=== PATIENT | female | born 1965 | race Caucasian/White ===

== ENCOUNTER → 2016-09-26 21:51 | Emergency (ER) | payer MEDICAID ==
[2016-09-26 22:31] LABS: Hematocrit 38 % (35-47); Hemoglobin 13.1 g/dl (12.0-16.0); Mean Corpuscular HGB Conc 35 g/dl (31-36); Mean Corpuscular Hemoglobin 31 pg (27-31); Mean Corpuscular Volume 90 fL (80-97); Mean Platelet Volume 8 um3 (7.4-10.4); Red Blood Count 4.21 10^6/ul (4.0-5.4); Red Cell Distribution Width 12 % (10.5-15); White Blood Count 7.5 10^3/ul (3.5-10.8)
--- NOTE | 2016-09-26 22:35 | ED ---
Ortiz Carrillo Billy, scribed for Willis Redding MD on 09/26/16 at 2218 . Neurological HPI - HPI Summary HPI Summary: Patient is a 51 year-old female coming to [facility] for evaluation of neurological symptoms since last night. Per EMS, patient has lethargy, headache, right-sided weakness in the extremities, right-sided facial droop, and slurred speech. She has also had an underlying neurological deficit where she has had an "odd gait" for the last few months. - History of Current Complaint Chief Complaint: EDNeurologicalDeficit Stated Complaint: R SIDED WEAKNESS/CVA Time Seen by Provider: 09/26/16 21:59 Hx Obtained From: Patient, EMS Onset/Duration: Gradual Onset, Started days ago Timing: Constant Onset Severity: Moderate Current Severity: Moderate Neurological Deficit Location: Facial, RUE, RLE Character: Motor Weakness, Impaired Speech, Lethargy Aggravating: Unknown Alleviating: Unknown - Additional Pertinent History Primary Care Physician: DAVID - Allergy/Home Medications Allergies/Adverse Reactions: Allergies Allergy/AdvReac Type Severity Reaction Status Date / Time Penicillins [PCN] Allergy Severe Anaphylatic Verified 08/12/16 14:44 Shock PMH/Surg Hx/FS Hx/Imm Hx Endocrine/Hematology History: Denies: Hx Diabetes Cardiovascular History: Denies: Hx Congestive Heart Failure, Hx Hypertension, Hx Pacemaker/ICD Respiratory History: Reports: Hx Chronic Obstructive Pulmonary Disease (COPD) - says isnt bad and that she only uses a nebulizer very infrequently GI History: Reports: Hx Ulcer - says had gastric ulcer when a child, Other GI Disorders - cirrhosis with ascites History: Denies: Hx Renal Disease, Other Problems/Disorders Musculoskeletal History: Reports: Hx Back Problems, Hx Orthopedic Injury, Other Musculoskeletal History - shoulder problem. takes flexeril, plate in neck Denies: Hx Arthritis, Hx Bursitis, Hx Congenital Bone Abnormalities, Hx Fibromyalgia, Hx Gout Sensory History: Reports: Hx Contacts or Glasses Denies: Hx Cataracts, Hx Hearing Aid Opthamlomology History: Reports: Hx Contacts or Glasses Denies: Hx Cataracts Neurological History: Reports: Other Neuro Impairments/Disorders - head injury w /o loss of consciousness Denies: Hx Dementia Psychiatric History: Reports: Hx Anxiety, Hx Depression, Hx Community Mental Health Tx, Hx Suicide Attempt, Hx Substance Abuse Denies: Hx Eating Disorder, Hx Panic Disorder, Hx of Violent Episodes Against Others - Cancer History Cancer Type, Location and Year: Cervical Hx Chemotherapy: No Hx Radiation Therapy: No Hx Palliative Cancer Treatment: No - Surgical History Surgery Procedure, Year, and Place: cervical neck fusion with titanium rods 2010. 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, Hx of Known/Suspected MRSA - "About 10 years ago." Denies: Hx Clostridium Difficile, Hx Human Immunodeficiency Virus (HIV), Traveled Outside the [place] in Last 30 Days - Family History Known Family History: Positive: Other - EtOH abuse disorder - Social History Alcohol Use: Daily Alcohol Amount: alcoholic, drank last night Hx Substance Use: No Substance Use Type: Reports: None Substance Use Comment - Amount & Last Used: currently denies drug use Hx Tobacco Use: Yes Smoking Status (MU): Heavy Every Day Tobacco Smoker Type: Cigarettes Amount Used/How Often: 1 pack per day Length of Time of Smoking/Using Tobacco: years Have You Smoked in the Last Year: Yes Review of Systems Constitutional: Other - lethargy Neurological: Other - facial droop, slurred speech, "odd gait" Positive: Headache, Weakness All Other Systems Reviewed And Are Negative: Yes Physical Exam Triage Information Reviewed: Yes Vital Signs On Initial Exam: Initial Vital Signs Temp 97 F 09/26/16 22:17 Pulse 99 09/26/16 22:17 Resp 18 09/26/16 22:17 BP 97/71 09/26/16 22:17 Pulse Ox 97 09/26/16 22:17 Vital Signs Reviewed: Yes Appearance: Positive: No Pain Distress, Ill-Appearing, Thin Skin: Positive: Warm Head/Face: Positive: Normal Head/Face Inspection Eyes: Positive: INDER ENT: Positive: Hearing grossly normal Neck: Positive: Supple Respiratory/Lung Sounds: Positive: Clear to Auscultation, Breath Sounds Present Cardiovascular: Positive: RRR Abdomen Description: Positive: Nontender, Soft Bowel Sounds: Positive: Present Neurological: Positive: Focal Deficit @ - rt hemiparesis Diagnostics - Vital Signs Vital Signs Temp Pulse Resp BP Pulse Ox 09/26/16 22:19 99 96 09/26/16 22:17 97 F 99 18 97/71 97 - Laboratory Result Diagrams: 09/26/16 22:20 Lab Statement: Any lab studies that have been ordered have been reviewed, and results considered in the medical decision making process. - Radiology CXR Radiology Interpretation Completed By: Radiologist - See EMR* - CT Brain CT Interpretation Completed By: Radiologist - THERE IS A LARGE EXTRA-AXIAL HEMORRHAGE ADJACENT TO THE LEFT FRONTAL AND PARIETAL BONES MOST CONSISTENT WITH AN EPIDURAL HEMATOMA CAUSING SIGNIFICANT MASS EFFECT AND SUBFALCINE HERNIATION NOTED. - EKG 2221 EKG Interpretation: NSR 97 bpm, no STEMI NIH Scale - NIH Scale Level of Consciousness: Alert/Keenly Responsive Ask Patient the Month and His/Her Age: Both Correct Ask Pt to Open/Close Eyes and Leather Splitter/Release Non-Paretic Hand: Both Correctly Best Gaze (Only Horizontal Eye Movement): Normal Visual Field Testing: No Visual Loss Facial Paresis-Pt to Smile & Close Eyes or Grimace Symmetry: Minor Paralysis Motor Function - Right Arm: No Movement Motor Function - Left Arm: No Drift-Holds 10 Seconds Motor Function - Right Leg: No Movement Motor Function - Left Leg: No Drift-Holds 10 Seconds Limb Ataxia-Must be out of Proportion to Weakness Present: Absent Sensory (Use Pinprick to Test Arms/Legs/Trunk/Face): Pinprick Less on Affected Best Language (Describe Picture, Name Items): Some Loss Dysarthria (Read Several Words): Normal Extinction and Inattention: No Abnormality Total Score: 11 Course/Dx - Diagnoses Provider Diagnoses: Epidural hematoma - Physician Notifications Discussed Care of Patient With: Dr. Adam (radiology) at 2200: CT brain findings reviewed. Dr. Bay ([facility] ED) at 2235: accepts transfer. Dr. Adam (radiology) at 2248: CXR findings discussed. Instructed by Provider To: Transfer Reason For Transfer: Specialty available at [facility] but not project consultant. Discharge - Discharge Plan Condition: Critical Disposition: TRANS HIGHER LVL OF CARE FAC Referrals: Tan Hughes MD [Primary Care Provider] - The documentation as recorded by the Ortiz clement Billy accurately reflects the service I personally performed and the decisions made by , Willis Redding MD.
--- NOTE | 2016-09-26 22:39 | RAD ---
INDICATION: Neurologic changes, code burt. COMPARISON: Comparison is made with a prior CT of the brain from November 10, 2015. TECHNIQUE: Contiguous axial sections of the brain were obtained from the skull base to the vertex without contrast. FINDINGS: There is a large intra-axial hemorrhage adjacent to the left frontal and parietal bones most consistent with an epidural hematoma measuring up to 2.8 cm in thickness. This causes significant mass effect with approximately 1.1 cm of subfalcine herniation. No other focal abnormalities are seen. No fracture is seen. The visualized portion of the paranasal sinuses and mastoid air cells appear clear. The results of this exam were discussed with the referring clinician at 2220 hours. IMPRESSION: THERE IS A LARGE EXTRA-AXIAL HEMORRHAGE ADJACENT TO THE LEFT FRONTAL AND PARIETAL BONES MOST CONSISTENT WITH AN EPIDURAL HEMATOMA CAUSING SIGNIFICANT MASS EFFECT AND SUBFALCINE HERNIATION NOTED.
[2016-09-26 22:47] LABS: ALT 11 U/L (7-52); AST 21 U/L (13-39); Albumin 3.5 g/dL (3.2-5.2); Alkaline Phosphatase 53 U/L (34-104); Anion Gap 6 mmol/L (2-11); BUN/Creatinine Ratio 20.3 (8-20); Blood Urea Nitrogen 16 mg/dL (6-24); CO2 Carbon Dioxide 27 mmol/L (22-32); Calcium 8.8 mg/dL (8.6-10.3); Chloride 105 mmol/L (101-111); Cholesterol 149 mg/dL; EGFR African American 98.7 (>60); EGFR Non-African American 76.7 (>60); Globulin 2.9 g/dL (2-4); Glucose 134 mg/dL (70-100); HDL Cholesterol 47.3 mg/dL; LDL Cholesterol 83 mg/dL; Potassium 3.1 mmol/L (3.5-5.0); Sodium 138 mmol/L (133-145); Total Protein 6.4 g/dL (6.4-8.9); Triglycerides 92 mg/dL
--- NOTE | 2016-09-26 22:52 | RAD ---
INDICATION: Cerebrovascular accident. COMPARISON: Comparison is made with prior chest x-ray studies from January 09, 2015, January 25, 2015 and March 04, 2015. TECHNIQUE: A portable view of the chest was obtained. FINDINGS: Cardiac and mediastinal contours appear to be within normal limits. There is a nodular density which projects lateral to the right hilum measuring 1.2 cm in size. This is not seen on the prior exams. The lungs are otherwise clear. No pleural effusion is seen. The results of this exam were discussed with the referring clinician. IMPRESSION: THERE IS A NEW NODULAR DENSITY LATERAL TO THE RIGHT HILUM. RECOMMEND A CT OF THE CHEST FOR FURTHER EVALUATION.
[2016-09-26 23:15] LABS: Alcohol < 10 mg/dL (<10)
[2016-09-27 00:26] VITALS: BP 95/67
== END | disposition short-term general hospital (02) ==
LOC: ED 21:51
DX: S06.4X0A Epidural hemorrhage without loss of consciousness, initial encounter (principal); Z88.0 Allergy status to penicillin; F17.210 Nicotine dependence, cigarettes, uncomplicated
CPT/HCPCS: 36415; 70450; 71010; 80053; 80061; 80320; 83605; 84484; 85025; 85610; 85730; 93005; 99284; G0480

== ENCOUNTER 2016-10-09 13:26 | Emergency (ER) | payer MEDICAID ==
[2016-10-09 14:21] LABS: Hematocrit 32 % (35-47); Hemoglobin 11.2 g/dl (12.0-16.0); Mean Corpuscular HGB Conc 35 g/dl (31-36); Mean Corpuscular Hemoglobin 31 pg (27-31); Mean Corpuscular Volume 90 fL (80-97); Mean Platelet Volume 7 um3 (7.4-10.4); Red Blood Count 3.59 10^6/ul (4.0-5.4); Red Cell Distribution Width 12 % (10.5-15); White Blood Count 6.9 10^3/ul (3.5-10.8)
[2016-10-09 14:33] LABS: ALT 12 U/L (7-52); AST 19 U/L (13-39); Albumin 3.9 g/dL (3.2-5.2); Alkaline Phosphatase 61 U/L (34-104); Anion Gap 5 mmol/L (2-11); BUN/Creatinine Ratio 14.4 (8-20); Blood Urea Nitrogen 15 mg/dL (6-24); CO2 Carbon Dioxide 27 mmol/L (22-32); Calcium 9.4 mg/dL (8.6-10.3); Chloride 100 mmol/L (101-111); EGFR African American 71.8 (>60); EGFR Non-African American 55.9 (>60); Globulin 3.1 g/dL (2-4); Glucose 78 mg/dL (70-100); Potassium 4.1 mmol/L (3.5-5.0); Sodium 132 mmol/L (133-145)
[2016-10-09 14:54] LABS: Acetaminophen < 15 mcg/mL; Alcohol < 10 mg/dL (<10); Salicylate < 2.50 mg/dL (<30)
[2016-10-09 15:02] LABS: TSH (Thyroid Stimulating Horm) 1.17 mcIU/mL (0.34-5.60)
--- NOTE | 2016-10-09 15:22 | RAD ---
HISTORY: Altered mental status, recent epidural hemorrhage COMPARISONS: None TECHNIQUE: Multiple contiguous axial CT scans were obtained of the head without intravenous contrast. FINDINGS: HEMORRHAGE/INFARCT: There is no parenchymal hemorrhage. There is no acute infarct. MASSES/SHIFT: There is no mass or shift. EXTRA-AXIAL SPACES: There is a left frontoparietal subacute subdural hematoma measuring 0.7 cm in depth. This has decreased in size compared to the previous examination. SULCI AND VENTRICLES: The sulci and ventricles are normal in size and position for the patient's stated age. CEREBRUM: There are no focal parenchymal abnormalities. BRAINSTEM: There are no focal parenchymal abnormalities. CEREBELLUM: There are no focal parenchymal abnormalities. VESSELS: The vessels are grossly normal. PARANASAL SINUSES: The paranasal sinuses are clear. ORBITS: The orbits are unremarkable. BONES AND SOFT TISSUE: There is minimal post surgical change to the left skull OTHER: None IMPRESSION: LEFT FRONTOPARIETAL SUBACUTE SUBDURAL HEMATOMA, DECREASED FROM SEPTEMBER 26, 2016. THERE IS NO SHIFT.
[2016-10-09] MEDS ORDERED: Ibuprofen TAB* 600 MG PO ONE (23:24)
[2016-10-10] MEDS ORDERED: Nicotine PATCH 21 MG/24 HR* PATCH ONE ×2 (08:08)
[2016-10-10] MEDS ORDERED: Nicotine PATCH 21 MG/24 HR* PATCH TRANSDERM SCH (09:00)
[2016-10-10] MEDS ORDERED: Disulfiram TAB* 250 MG PO ONE (09:06)
[2016-10-10] MEDS ORDERED: Cyclobenzaprine TAB* 10 MG PO ONE (09:06)
[2016-10-10] MEDS ORDERED: Gabapentin CAP(*) 400 MG PO ONE (09:06)
[2016-10-10 09:09] LABS: Urine Bilirubin Negative (Negative); Urine Glucose Negative (Negative); Urine Nitrite Negative (Negative)
[2016-10-10 09:37] LABS: Benzodiazepine Urine Screen Presumptive Positive (None Detect)
[2016-10-10 10:47] VITALS: BP 130/87
[2016-10-10] MEDS ORDERED: Ibuprofen TAB* 600 MG ONE ×2 (10:51)
--- NOTE | 2016-10-10 12:50 | ED ---
IOrtiz Billy, scribed for Andi Raman MD on 10/10/16 at 1124 . Progress - Progress Note Progress Note: Patient signed out at shift change. Dr. Vega assessed the patient. After his assessments, he recommends discharge home for further assessment by PCP and outpatient therapy. Course/Dx - Diagnoses Provider Diagnoses: unintentional overdose Discharge - Discharge Plan Condition: Stable Disposition: HOME The documentation as recorded by the Ortiz clement Billy accurately reflects the service I personally performed and the decisions made by , Andi Raman MD.
== END 2016-10-10 12:40 | disposition home or self-care (01) ==
LOC: ED 13:26
DX: T65.91XA Toxic effect of unspecified substance, accidental (unintentional), initial encounter (principal); Y92.9 Unspecified place or not applicable
CPT/HCPCS: 36415; 70450; 80053; 80307; 80320; 80329; 81003; 84443; 85025; 93005; 99285; A9270-GY; G0480

== ENCOUNTER 2018-05-12 17:54 | Emergency (ER) | payer OTHER ==
[2018-05-12 18:00] VITALS: BP 124/87
--- OUTSIDE RECORDS SUMMARY | 2018-05-12 18:12 | XMS REPORT | Continuity of Care Document ---
:1965 External Reference #:[id number] Author Name Elle Roa Care Team Providers Name Role Phone Ramses Schofield MD Primary Care Physician Unavailable Payers Type Date Identification Numbers Payment Provider Subscriber Effective: 2015 Policy Number: [id number] Medicaid Yumiko Falcon Expires: 2015 Group Name: 1 1 [address] PayID: [id number] [place] [address] Effective: 2015 Policy Number: [place]/[employer] Medicaid Yumiko Falcon [id number] Group Name: [id number] [address] [address] PayID: [id number] [place] [address] Onset: 2015 Policy Number: [id number] [employer] Yumiko Falcon Group Number: [id number] [address] PayID: [id number] [place] [address] Advance Directives Description No Information Available Problems Date Description Provider Status Onset: 10/16/2016 Traumatic subdural hematoma Tan Hughes M.D.,FACP Active Note: LEFT occipital Onset: 07/03/2015 Cervical spondylosis without Richy Blackmon M.D. 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 Inactive Inactive: 09/28/2016 Onset: 02/19/2015 Fracture of multiple ribs Shahzad Caro M.D. Inactive Inactive: 09/28/2016 Onset: 08/03/2016 Transient altered mental status Willis Elizabeth MD Inactive Inactive: 09/28/2016 Onset: 08/03/2016 Headache Willis Elizabeth MD Inactive Inactive: 10/16/2016 Onset: 04/19/2017 Neoplasm of uncertain behavior of Elias Newberry M.D. Resolved skin Resolved: 08/19/2017 Family History Date Family Member(s) Problem(s) Comments General Heart Disease General Chronic Obstructive Pulmonary Disease (COPD) General Rheumatoid Arthritis General Emphysema : (age 68 Years) Father due to Heart attack Father Throat cancer Father Alcoholism : (age 66 Years) Mother due to COPD Mother Ra Mother Heavy smoker Mother Bipolar Disorder Social History Type Date Description Comments Sex Unknown Marital Status Lives With 10/16/2016 Alone Occupation Unemployed Tobacco Use Start: Unknown Patient is a current cigarette smoker, smokes every day Tobacco Use Start: Unknown Never Smoked Cigars Tobacco Use Start: Unknown Never Smoked A Pipe Smokeless Tobacco Never Used Smokeless Tobacco ETOH Use 08/19/2017 Consumed 1 pint of Started in 2001 liquor per day in the until 2002 then past quit and started again since 2010, on/off. Last time July/2017 Recreational Drug Use Marijuana use Tobacco Use Start: Unknown Patient is a current 1ppd X 40 years smoker, smokes every day Tobacco Use Start: Unknown Heavy tobacco smoker (more than 10 cigarettes/day) Smoking Status Reviewed: 04/27/18 Heavy tobacco smoker (more than 10 cigarettes/day) Exercise Type/Frequency Does not exercise Allergies, Adverse Reactions, Alerts Date Description Reaction Status Severity Comments 02/19/2015 Penicillin throat closes, fever Active Severe Medications Medication Date Status Form Strength Qnty SIG Indications Ordering Provider Sinus Rinse Kit 04/27 Active Packet 60uni Use twice a J32.9 Katja /2017 ts day. 1 Sudha, supply Flonase Allergy 04/27 Active Suspension 50mcg/Act 9.900 spray 1 J32.9 Katja ml spray in , cordell REYES nostril twice daily Fluticasone 03/08 Active Aerosol 232-14mcg 1unit Take 2 J44.9 Ramses Propionate/Salme /2018 /Act s inhalations MD Chandu terol twice a day Incruse Ellipta 03/08 Active Aerosol 62.5mcg/I 30uni 1 J44.9 Ramses nh ts inhalation MD Chandu once a day Cyclobenzaprine 03/08 Active Tablets 5mg 90tab take 5mg Ramses HCL s three times MD Chandu a day as needed. Thiamine HCL 01/12 Active Tablets 100mg 60tab 1 by mouth F10.14 Ramses s every day MD Chandu Ibuprofen 01/12 Active Tablets 600mg 90tab Take 1 s Tablet By MD Chandu Mouth Every 8 Hours as Needed For Pain Ventolin HFA 01/12 Active Aerosol 108(90Bas 18uni Take Every J44.9 Ramses e) ts 4 Hours as MD Chandu mcg/Act Needed For Shortness Of Breath Or Wheezing. Gabapentin 10/16 Active Tablets 600mg 30tab 1 by mouth /2016 s daily as MD Chandu needed for anxiety Antabuse Active Tablets 500mg 90tab by mouth Ramses / s every MD Chandu evening for alcohol use disorder Gabapentin Active Tablets 800mg 90tab 1 tab by Ramses /0000 s mouth three MD Chandu times a day Clonidine HCL Active Tablets 0.2mg 1 by mouth Unknown twice daily Mirena (52 MG) Active IUD 20mcg/24H Unknown / R Trazodone HCL Active Tablets 100mg 30tab Take 1 Ramses / s Tablet By MD Chandu Mouth Every Night Bedtime For Insomnia Quetiapine Active Tablets ER 200mg 30tab Take 1 Ramses Fumarate ER /0000 24HR s Tablet By MD Chandu Mouth Every Night Atrovent HFA 01/12 Hx Aerosol 17mcg/Act 12.9u take 2 J44.9 nits puffs every MD Chandu - 6 hours as 03/08 needed Acetaminophen 11/24 Hx Tablets 325mg 60tab 2 tablets s by mouth Pete Hughes, - every 6 M.D.,FACP 11/30 hours needed for pain/fever Ibuprofen 10/16 Hx Tablets 800mg 90tab take 1 s tablet by MD Chandu - mouth three 01/12 times a day as needed Valium 08/03 Hx Tablets 2mg 4tabs 4 by mouth R51 prior to Glenn, - mri 10/16 Cyclobenzaprine 02/19 Hx Tablets 5mg 60tab 1 tablet by R07.89 s mouth three Caro, - times a day M.D. 03/11 as needed Medrol (Nestor) 06/10 Hx Tablets 4mg 1tabs per Darren Santiago josefina Barton, - directions M.D. 02/[address] 333mg take 2 Unknown Calcium tablets by - mouth three 03/11 times a day Gabapentin Hx Tablets 600mg 1 tab by Unknown /0000 mouth tid - 02/19 Ibuprofen Hx Tablets 600mg 90tab 1 by mouth Shahzad s every 8 Caro, - hours as M.D. 10/16 needed Tramadol HCL Hx Tablets 50mg 30tab 1 tablets Shahzad / s every 12 Caro, - hours as M.D. 03/11 Gabapentin Hx Tablets 600mg 1 po tid Unknown /0000 - 07/03 Diazepam Hx Tablets 5mg Take 1 Unknown /0000 Tablet By - Mouth 3 11/24 Times A Day Pain & Fever Hx Tablets 325mg Take 2 Unknown /0000 Tablets By - Mouth Every 11/24 6 Hours Needed For Pain For Up To 10 Cyclobenzaprine Hx Tablets 10mg 90tab take 1 Ramses HCL /0000 s tablet by MD Chandu - mouth 3 03/08 times a day as needed for spasm Immunizations CPT Code Status Date Vaccine Lot # [id number] Given 08/19/2017 Pneumonia Vaccine [id number] Vital Signs Date Vital Result Comment 04/27/2018 12:10pm Weight 166.00 lb Heart Rate 80 /min BP Systolic 148 mmHg BP Diastolic 100 mmHg Respiratory Rate 18 /min Pain Level 8 O2 % BldC Oximetry 98 % 04/27/2018 10:53am Height 67 inches 5'7" Weight 166.00 lb Heart Rate 94 /min BP Systolic Sitting 140 mmHg Lue regular cuff BP Diastolic Sitting 92 mmHg Lue regular cuff Respiratory Rate 16 /min O2 % BldC Oximetry 98 % BMI (Body Mass Index) 26.0 kg/m2 Neck Circumference in inches 14 03/08/2018 11:18am Weight 156.00 lb Heart Rate 88 /min BP Systolic 128 mmHg Rue BP Diastolic 86 mmHg Rue Respiratory Rate 16 /min Body Temperature 99.0 F Pain Level 6 shoulders O2 % BldC Oximetry 98 % 01/12/2018 10:48am Height 67 inches 5'7" Weight 146.00 lb Heart Rate 88 /min BP Systolic 112 mmHg BP Diastolic 75 mmHg Respiratory Rate 18 /min Body Temperature 99.0 F Pain Level 8 O2 % BldC Oximetry 99 % BMI (Body Mass Index) 22.9 kg/m2 08/19/2017 12:40pm Height 67 inches 5'7" Weight 144.00 lb Heart Rate 93 /min BP Systolic Sitting 110 mmHg BP Diastolic Sitting 66 mmHg Body Temperature 98.4 F O2 % BldC Oximetry 98 % BMI (Body Mass Index) 22.6 kg/m2 04/19/2017 2:05pm Height 66.5 inches 5'6.50" Weight 150.00 lb BP Systolic Sitting 122 mmHg BP Diastolic Sitting 76 mmHg Respiratory Rate 16 /min Pain Level 4 BMI (Body Mass Index) 23.8 kg/m2 04/12/2017 3:04pm Height 66.5 inches 5'6.50" Weight 151.00 lb BP Systolic Sitting 122 mmHg BP Diastolic Sitting 72 mmHg Respiratory Rate 16 /min Pain Level 7 BMI (Body Mass Index) 24.0 kg/m2 04/05/2017 1:38pm Weight 151.00 lb Heart Rate 80 /min BP Systolic Sitting 124 mmHg BP Diastolic Sitting 80 mmHg Body Temperature 96.9 F O2 % BldC Oximetry 92 % 01/11/2017 10:02am Weight 141.50 lb Heart Rate 103 /min BP Systolic Sitting 90 mmHg BP Diastolic Sitting 60 mmHg Body Temperature 98.2 F O2 % BldC Oximetry 95 % 12/01/2016 9:47am Height 66.5 inches 5'6.50" Weight 135.25 lb Heart Rate 90 /min BP Systolic Sitting 118 mmHg BP Diastolic Sitting 72 mmHg BMI (Body Mass Index) 21.5 kg/m2 11/24/2016 3:53pm Weight 134.75 lb Heart Rate 104 /min BP Systolic 118 mmHg BP Diastolic 76 mmHg Body Temperature 98.5 F O2 % BldC Oximetry 98 % 10/16/2016 4:02pm Weight 146.38 lb Heart Rate 68 /min BP Systolic 132 mmHg BP Diastolic 86 mmHg O2 % BldC Oximetry 92 % 08/03/2016 11:03am Height 66.5 inches 5'6.50" Weight 141.00 lb Heart Rate 88 /min BP Systolic Sitting 132 mmHg BP Diastolic Sitting 88 mmHg BMI (Body Mass Index) 22.4 kg/m2 07/03/2015 1:59pm Height 66.5 inches 5'6.50" Weight 167.00 lb Heart Rate 82 /min BP Systolic Sitting 130 mmHg BP Diastolic Sitting 78 mmHg Pain Level 8 BMI (Body Mass Index) 26.5 kg/m2 06/05/2015 1:50pm Height 66.5 inches 5'6.50" Weight 173.00 lb Heart Rate 100 /min BP Systolic Sitting 118 mmHg BP Diastolic Sitting 82 mmHg Body Temperature 98.2 F O2 % BldC Oximetry 98 % BMI (Body Mass Index) 27.5 kg/m2 03/13/2015 2:27pm Height 66.5 inches 5'6.50" Weight 172.00 lb Heart Rate 112 /min BP Systolic Sitting 118 mmHg BP Diastolic Sitting 80 mmHg Body Temperature 98.2 F O2 % BldC Oximetry 93 % BMI (Body Mass Index) 27.3 kg/m2 02/19/2015 1:20pm Height 66.5 inches 5'6.50" Weight 166.00 lb Heart Rate 103 /min BP Systolic Sitting 128 mmHg BP Diastolic Sitting 84 mmHg Body Temperature 98.6 F O2 % BldC Oximetry 99 % BMI (Body Mass Index) 26.4 kg/m2 Results Test Date Facility Test Result H/L Range Note Laboratory test 04/19/2017 [facility] Surgical SEE RESULT 1 finding [address] [place] [address] [phone] Laboratory test 04/12/2017 [facility] Hemosure Neg finding Non-Medicare Laboratory test 02/06/2017 [facility] Ammonia 22 ?mol/L N 16- [address] [place] [address] [phone] TSH (Thyroid Stim Horm) 1.25 mcIU/mL N 0.34-5.60 Folic Acid (Folate) 9.54 ng/mL N >3.99 Vitamin B12 515 pg/mL N 180-914 2 Laboratory 02/06/2017 [facility] Hepatitis C Nonreactive N Nonreactive test finding [address] [place] [address] [phone] HIV 1/2 AB 02/06/2017 [facility] HIV 1 2 Nonreactive N Nonreactive 3 Evaluation [address] [place] [address] [phone] Urinalysis 10/09/2016 [facility] Urine Color Yellow N Profile [address] [place] [address] [phone] Urine Appearance Clear N Urine Specific [place] 1.012 N 1.010-1.030 Urine pH 7.0 N 5-9 Urine Urobilinogen Negative N Negative Urine Ketones Negative N Negative Urine Protein Negative N Negative Urine Leukocytes Negative N Negative Urine Blood Negative N Negative Urine Nitrite Negative N Negative Urine Bilirubin Negative N Negative Urine Glucose Negative N Negative CBC Auto Diff 10/09/2016 [facility] White Blood 6.9 10^3/uL N 3.5-10.8 [address] [place] [address] [phone] Red Blood Count 3.59 10^6/uL Low 4.0-5.4 Hemoglobin 11.2 g/dL Low 12.0-16.0 Hematocrit 32 % Low 35-47 Mean Corpuscular Volume 90 fL N 80-97 Mean Corpuscular Hemoglobin 31 pg N 27-31 Mean Corpuscular HGB Conc 35 g/dL N 31-36 Red Cell Distribution Width 12 % N 10.5-15 Platelet Count 168 10^3/uL N 150-450 Mean Platelet Volume 7 um3 Low 7.4-10.4 Abs Neutrophils 4.3 10^3/uL N 1.5-7.7 Abs Lymphocytes 1.6 10^3/uL N 1.0-4.8 Abs Monocytes 0.4 10^3/uL N 0-0.8 Abs Eosinophils 0.5 10^3/uL N 0-0.6 Abs Basophils 0.1 10^3/uL N 0-0.2 Abs Nucleated RBC 0 10^3/uL N Granulocyte % 62.3 % N 38-83 Lymphocyte % 23.4 % Low 25-47 Monocyte % 6.4 % N 1-9 Eosinophil % 7.0 % High 0-6 Basophil % 0.9 % N 0-2 Nucleated Red Blood Cells % 0 N Comp Metabolic Panel 10/09/2016 [facility] Sodium 132 mmol/L Low 133-[address] [place] [address] [phone] Potassium 4.1 mmol/L N 3.5-5.0 Chloride 100 mmol/L Low 101-111 Co2 Carbon Dioxide 27 mmol/L N 22-32 Anion Gap 5 mmol/L N 2-11 Glucose 78 mg/dL N 70-100 Blood Urea Nitrogen 15 mg/dL N 6-24 Creatinine 1.04 mg/dL High 0.51-0.95 BUN/Creatinine Ratio 14.4 N 8-20 Calcium 9.4 mg/dL N 8.6-10.3 Total Protein 7.0 g/dL N 6.4-8.9 Albumin 3.9 g/dL N 3.2-5.2 Globulin 3.1 g/dL N 2-4 Albumin/Globulin Ratio 1.3 N 1-3 Total Bilirubin 0.40 mg/dL N 0.2-1.0 Alkaline Phosphatase 61 U/L N 34-104 Alt 12 U/L N 7-52 Ast 19 U/L N 13-39 Egfr Non- 55.9 N >60 Egfr 71.8 N >60 4 Laboratory test 10/09/2016 [facility] Acetaminophen < 15 g/mL N [address] [place] [address] [phone] Alcohol < 10 mg/dL N <10 Salicylate < 2.50 mg/dL N <30 TSH (Thyroid Stim Horm) 1.17 mcIU/mL N 0.34-5.60 Urine Drug 10/09/2016 [facility] Amphetamine Ur None Detected N None Detect SCR ED & [address] Screen [place] [address] [phone] Barbiturates Urine Screen None Detected N None Detect Benzodiazepine Urine Screen Presumptive Posi <SEE NOTE> Abnormal None Detect 6 Urine Cannabinoids Screen Presumptive Posi <SEE NOTE> Abnormal None Detect 7 Urine Cocaine Screen None Detected N None Detect Urine Opiates Screen None Detected N None Detect Urine Phencyclidine Screen None Detected N None Detect 8 CBC Auto Diff 09/26/2016 [facility] White Blood 7.5 10^3/uL N 3.5-10.[address] [place] [address] [phone] Red Blood Count 4.21 10^6/uL N 4.0-5.4 Hemoglobin 13.1 g/dL N 12.0-16.0 Hematocrit 38 % N 35-47 Mean Corpuscular Volume 90 fL N 80-97 Mean Corpuscular Hemoglobin 31 pg N 27-31 Mean Corpuscular HGB Conc 35 g/dL N 31-36 Red Cell Distribution Width 12 % N 10.5-15 Platelet Count 163 10^3/uL N 150-450 Mean Platelet Volume 8 um3 N 7.4-10.4 Abs Neutrophils 3.7 10^3/uL N 1.5-7.7 Abs Lymphocytes 2.5 10^3/uL N 1.0-4.8 Abs Monocytes 0.6 10^3/uL N 0-0.8 Abs Eosinophils 0.6 10^3/uL N 0-0.6 Abs Basophils 0.1 10^3/uL N 0-0.2 Abs Nucleated RBC 0 10^3/uL N Granulocyte % 49.6 % N 38-83 Lymphocyte % 33.0 % N 25-47 Monocyte % 8.3 % N 1-9 Eosinophil % 8.2 % High 0-6 Basophil % 0.9 % N 0-2 Nucleated Red Blood Cells % 0.1 N Laboratory test 09/26/2016 [facility] Troponin-I (TnI) 0.00 ng/ mL N <0.[address] [place] [address] [phone] Alcohol < 10 mg/dL N <10 Lipid Profile 09/26/2016 [facility] Triglycerides 92 mg/dL N 10 (Trig/Chol/HDL) [address] [place] [address] [phone] Cholesterol 149 mg/dL N 11 HDL Cholesterol 47.3 mg/dL N 12 LDL Cholesterol 83 mg/dL N 13 Comp Metabolic Panel 09/26/2016 [facility] Sodium 138 mmol/L N 133-[address] [place] [address] [phone] Potassium 3.1 mmol/L Low 3.5-5.0 Chloride 105 mmol/L N 101-111 Co2 Carbon Dioxide 27 mmol/L N 22-32 Anion Gap 6 mmol/L N 2-11 Glucose 134 mg/dL High 70-100 Blood Urea Nitrogen 16 mg/dL N 6-24 Creatinine 0.79 mg/dL N 0.51-0.95 BUN/Creatinine Ratio 20.3 High 8-20 Calcium 8.8 mg/dL N 8.6-10.3 Total Protein 6.4 g/dL N 6.4-8.9 Albumin 3.5 g/dL N 3.2-5.2 Globulin 2.9 g/dL N 2-4 Albumin/Globulin Ratio 1.2 N 1-3 Total Bilirubin 0.50 mg/dL N 0.2-1.0 Alkaline Phosphatase 53 U/L N 34-104 Alt 11 U/L N 7-52 Ast 21 U/L N 13-39 Egfr Non- 76.7 N >60 Egfr 98.7 N >60 14 Laboratory test 09/26/2016 [facility] Partial 27.9 seconds N 26.0-36.[address] [address] PTT [phone] Lactic Acid 0.7 mmol/L N 0.5-2.0 15 Inr/Protime 09/26/2016 [facility] Inr 0.95 N 0.89-1.11 [address] [place] [address] [phone] 1 SEE RESULT BELOW Name: KOKIYUMIKO L : [address]: Elias Newberry MD Acct: [id number] Unit: [id number] AGE: 52 Location: [facility] Re04/19/17 SEX: F Status: REG REF SPEC: [id number] MIKE: 04/19/17-1430 [facility] DR: Elias Newberry MD REQ: [id number] RECD: 04/19/17 STATUS: SOUT _ ORDERED: LEVEL 3 COMMENTS: [id number] FINAL DIAGNOSIS Skin, right eyelid, biopsy: -- Acrochordon. CLINICAL HISTORY No history given PRE-OPERATIVE DIAGNOSIS GROSS DESCRIPTION The specimen is received in formalin with no source identified and a requisition labeled, Right Eyelid, and consists of a 0.7 x 0.2 cm escamilla-burt irregular skin shave with an eccentric 0.5 x 0.4 x 0.2 cm escamilla-burt wrinkled polypoid nodule. The specimen is inked , trisected and submitted entirely in one cassette. Signed (signature on file) Barbara Anderson MD 10/31 1114 END OF REPORT * ML=Testing performed at Main Lab DEPARTMENT OF PATHOLOGY, [address] [place] [address] Isreal Oliva M.D. Director [facility] # [id number] 2 Normal Range 180 to 914 Indeterminate Range 145 to 180 Deficient Range <145 3 It is recognized that currently available assays for the detection of antibodies to HIV-1 and/or HIV-2 may not detect all infected individuals. HIV antibodies may be undetectable in some stages of the infection and in some clinical conditions. The performance of this assay has not been established for populations of infants or children. Assayed by Chemiluminescence Microparticle Immunoassay on the Siemens Advia Centaur CP. Values obtained with different methods or kits cannot be used interchangeably.The diagnostic specificity of the ADVIA Centaur 1/O/2 Enhanced assay in the low risk population was 99.90% (6052/6058) with a 95% confidence interval of 99.78 to 99.96%. 4 Because ethnic data is not always readily available, this report includes an eGFR for both -Americans and non- Americans. The National Kidney Disease Education Program (NKDEP) does not endorse the use of the MDRD equation for patients that are not between the ages of 18 and 70, are , have extremes of body size, muscle mass, or nutritional status, or are non- or non-. According to the National Kidney Foundation, irrespective of diagnosis, the stage of the disease is based on the level of kidney function: Stage Description GFR(mL/min/1.73 m(2)) 1 Kidney damage with normal or decreased GFR 90 2 Kidney damage with mild decrease in GFR 60-89 3 Moderate decrease in GFR 30-59 4 Severe decrease in GFR 15-29 5 Kidney failure <15 (or dialysis) 5 Therapeutic concentration: <50 ug/mL Toxic concentration: >120 ug/mL 6 Presumptive Positive Presumptive positive results are unconfirmed. 7 Presumptive Positive Presumptive positive results are unconfirmed. 8 The urine specimen was tested at the listed cutoffs: Drug class test level (ng/mL) Amphetamines 500 Barbiturates 200 Benzodiazepine metabolites 200 Cocaine metabolites 150 Cannabinoids 50 Opiates 300 Pcp 25 Specimen was received without chain of custody. Results should be used for medical purposes only. 9 99th percentile=0.04 ng/mL Troponin results at [facility] and [facility] are not interchangeable. 10 Desirable <150 Borderline high 150-199 High 200-499 Very High >500 11 Desirable <200 Borderline high 200-239 High >239 12 Low <40 Desirable: 40-60 High: >60 13 Desirable: <100 mg/dL Near Optimal: 100-129 mg/dL Borderline High: 130-159 mg/dL High: 160-189 mg/dL Very High: >189 mg/dL 14 Because ethnic data is not always readily available, this report includes an eGFR for both -Americans and non- Americans. The National Kidney Disease Education Program (NKDEP) does not endorse the use of the MDRD equation for patients that are not between the ages of 18 and 70, are , have extremes of body size, muscle mass, or nutritional status, or are non- or non-. According to the National Kidney Foundation, irrespective of diagnosis, the stage of the disease is based on the level of kidney function: Stage Description GFR(mL/min/1.73 m(2)) 1 Kidney damage with normal or decreased GFR 90 2 Kidney damage with mild decrease in GFR 60-89 3 Moderate decrease in GFR 30-59 4 Severe decrease in GFR 15-29 5 Kidney failure <15 (or dialysis) [facility] Severe Sepsis and Septic Shock Management Bundle Measure requires all lactic acids initially measuring >2.0 mmol/L be repeated. Procedures Date Code Description Status 04/19/2017 78086 Excise Malig Lesion .6-1CM Face/Ear/Eyelid/Nose/Lip Completed 08/11/2016 37427 Nerve Conduction 05-06 Studies Completed 08/11/2016 60087 Needle Electromyography Complete, Five Or More Muscles Completed Studied 08/11/2016 71866 EEG Recording Awake & Drowsy Completed 11/10/2015 10681 EKG, Interpretation Only Completed Encounters Type Date Location Provider Dx Diagnosis Office Visit 01/12/2018 [facility] Ramses Schofield MD J44.9 Chronic obstructive 10:30a [facility] pulmonary disease, unspecified I20.9 Angina pectoris, unspecified F41.9 Anxiety disorder, unspecified R06.02 Shortness of breath F10.14 Alcohol abuse with alcohol-induced mood disorder G47.00 Insomnia, unspecified M54.2 Cervicalgia F17.210 Nicotine dependence, cigarettes, uncomplicated Z12.11 Encounter for screening for malignant neoplasm of colon 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 Office Visit 08/19/2017 1:00p [facility] Internal Tan Freeman Z00.00 Encntr for Dov Hughes M.D.,FACP general adult Rd medical exam w/o abnormal findings S06.5x0S Traum subdr hem w/o loss of consciousness, sequela F10.14 Alcohol abuse with alcohol-induced mood disorder Z23 Encounter for immunization Office Visit 04/12/2017 3:00p [facility] C44.109 Unsp malignant C.M.A. AT Mariano Newberry neoplasm skin/ [place] left eyelid, including canthus Office Visit 04/05/2017 1:40p [facility] Internal Tan Freeman S06.5x0S Traum subdr hem Dov Hughes M.D.,FACP w/o loss of [address] consciousness, sequela 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 D48.5 Neoplasm of uncertain behavior of skin Office Visit 01/11/2017 [facility] Internal Tan Freeman S06.5x0S Traum subdr hem w/o 10:30a Dov Hughes M.D.,FACP loss of [address] consciousness, sequela 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 Z12.31 Encntr screen mammogram for malignant neoplasm of breast Z12.11 Encounter for screening for malignant neoplasm of colon Z11.59 Encounter for screening for other viral diseases Office Visit 12/01/2016 10:00a [facility] Willis Elizabeth MD R51 Headache R25.1 Tremor, unspecified 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 aff [employer]ERTY INSPECTOR in oth diseases classd elswhr 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, unspecified Office Visit 11/24/2016 [facility] Internal Tan Freeman S06.5x0D Traum subdr hem w/o 4:00p Dov Hughes, Julieth Quintana,FACP consciousness, subs F10.21 Alcohol dependence, in remission R26.89 Other abnormalities of gait and mobility Office Visit 10/16/2016 [facility] Internal Tan Freeman S06.5x0D Traum subdr hem w/o 4:40p Dov Hughes M.D.,FACP loss of [address] consciousness, subs Z48.02 Encounter for removal of sutures F10.14 Alcohol abuse with alcohol-induced mood disorder Office Visit 08/03/2016 [facility] R25.1 Tremor, 11:15a Clinic MD Glenn unspecified R26.89 Other abnormalities of gait and mobility R51 Headache G31.84 Mild cognitive impairment, so stated R40.4 Transient alteration of awareness Office Visit 07/03/2015 Neurosurgery Richy Phelps M47.812 Spondylosis w/o 2:00p Services Of Jair Blackmon M.D. myelopathy or radiculopathy, cervical region M47.812 Spondylosis w/o myelopathy or radiculopathy, cervical region Office Visit 06/05/2015 2:00p [facility] Internal Shahzad Caro, M54.2 Cervicalgia Medicine - [place] Dieter Quintana M25.511 Pain in right shoulder F10.10 Alcohol abuse, uncomplicated F32.8 Other depressive episodes R73.9 Hyperglycemia, unspecified F17.210 Nicotine dependence, cigarettes, uncomplicated Office Visit 03/13/2015 [facility] Internal Shahzad T50.901D Poisoning by unsp 2:20p Dov Caro M.D. drug/meds/biol [place] [address] subst, accidental, subs F10.10 Alcohol abuse, uncomplicated F32.8 Other depressive episodes R73.9 Hyperglycemia, unspecified G47.8 Other sleep disorders M54.2 Cervicalgia F17.210 Nicotine dependence, cigarettes, uncomplicated T40.4x2D Poisoning by oth synthetic narcotics, self-harm, subs T48.1x2D Poisoning by skeletal muscle relaxants, self-harm, subs Office Visit 02/19/2015 1:20p [facility] Internal Shahzad Caro, R07.89 Other chest Medicine - [place] M.DMaximiliano pain Rd R07.89 Other chest pain S22.41xA Multiple fractures of ribs, right side, init for clos fx S22.41xS Multiple fractures of ribs, right side, sequela M62.838 Other muscle spasm S22.41xS Multiple fractures of ribs, right side, sequela S22.41xA Multiple fractures of ribs, right side, init for clos fx M62.838 Other muscle spasm Office Visit 04/06/2014 7:44p [facility] Ti Steve, 977.9 Poisoning By Assoc,pc D.O. Medicinal Hospitalists Substance Unspec 789.1 Hepatomegaly Office Visit 04/05/2014 7:43p [facility] Ti Steve, 780.97 Altered Mental Assoc,pc D.O. Status Hospitalists 977.9 Poisoning By Medicinal Substance Unspec 276.2 Acidosis 288.60 Leukocytosis, Unspecified Office [facility] 09/23[facility]2012 [facility] Assocjuan M.D. Hepatitis Acute Hospitalists 276.8 Hypopotassemia 276.51 Dehydration 276.2 Acidosis Office Visit 09/22/2012 2:53p [facility] Sonny 571.1 Alcoholic Assocjuan M.D. Hepatitis Acute Hospitalists 276.8 Hypopotassemia 276.51 Dehydration 276.2 Acidosis Office Visit 09/21/2012 2:52p [facility] Reyna Fields, 571.1 Alcoholic Assocjuan M.D. Hepatitis Acute Hospitalists 276.8 Hypopotassemia 276.51 Dehydration Office Visit 06/10/2009 2:45p Neurosurgery Darren Santiago 721.0 Spondylosis Services Of Jair Barton M.D. Cervical W/O Myelopathy 721.0 Spondylosis Cervical W/O Myelopathy 847.0 Sprains & Strains Neck 847.0 Sprains & Strains Neck 722.0 Intervertebral Disc Displacement Cervical W/O Myelopathy 722.0 Intervertebral Disc Displacement Cervical W/O Myelopathy Plan of Treatment 04/27/2018 - NATI Tovar29.6 Repeated fallsReferral:[facility] Health/ Nurse SpecJ44.9 Chronic obstructive pulmonary disease, unspecifiedNew Labs:Alpha 1 Antitrypsin A1a, Ordered: New Orders:PFTW/Spirometry Vol Pre/Post Bronchdilat Dlco Complete, Ordered: Minute Walk, Ordered: 04/27/18I20.9 Angina pectoris, wdkbrjeyaktX98.21 Alcohol dependence, in hnhesrykgA03.84 Mild cognitive impairment, so qsbyirE74.4 Chronic pain 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
--- OUTSIDE RECORDS SUMMARY | 2018-05-12 18:12 | XMS REPORT | Continuity of Care Document ---
:1965 External Reference #:[id number] Author Name Nona Vital Care Team Providers Name Role Phone Ramses Schofield MD Primary Care Physician Unavailable Payers Type Date Identification Numbers Payment Provider Subscriber Effective: 2015 Policy Number: [id number] Medicaid Yumiko Falcon Expires: 2015 Group Name: 1 1 [address] PayID: [id number] [place] [address] Effective: 2015 Policy Number: [place] Medicaid Yumiko Falcon [id number] Group Name: [id number] [address] [address] PayID: [id number] [place] [address] Onset: 2015 Policy Number: [id number] [employer] Yumiko Falcon Group Number: [id number] [address] PayID: [id number] [place] [address] Advance Directives Description No Information Available Problems [...] canthus Onset: 08/19/2017 Heavy cigarette smoker (20-39 Tan Hughes, Active cigs/day) Mariano,FACP Onset: 01/12/2018 Chronic [...] Packet 60uni Use twice a J32.9 Katja ts day. 1 Sudha, supply Flonase Allergy 04/27 Active Suspension 50mcg/Act 9.900 spray 1 J32.9 Katja Relief ml spray in , cordell REYES nostril twice daily Vitamin D-400 04/27 Active Tablets 400Unit 30tab 1 tab by R29.6 Stephanie /2017 s mouth every Senner, day DO Cyclobenzaprine 04/27 Active Tablets 10mg 90tab take 1 tab Stephanie HCL s by mouth Senner, 2-3 times a DO day as needed Fluticasone 03/08 Active Aerosol 232-14mcg 1unit Take 2 J44.9 Ramses Propionate/Salme /2018 /Act s inhalations MD Chandu terol twice a day Incruse Ellipta 03/08 Active Aerosol 62.5mcg/I 30uni 1 J44.9 Ramses nh ts inhalation MD Chandu once a day Thiamine HCL 01/12 Active Tablets 100mg 60tab 1 by mouth F10.14 Ramses s every day MD Chandu Ibuprofen 01/12 Active Tablets 600mg 90tab Take 1 Ramses s Tablet By MD Chandu Mouth Every 8 Hours as Needed For Pain Ventolin HFA 01/12 Active Aerosol 108(90Bas 18uni Take Every J44.9 Ramses e) ts 4 Hours as MD Chandu mcg/Act Needed For Shortness Of Breath Or Wheezing. Gabapentin 10/16 Active Tablets 600mg 30tab 1 by mouth s daily as MD Chandu needed for anxiety Antabuse Active Tablets 500mg 90tab by mouth Ramses / s every MD Chandu evening for alcohol use disorder Gabapentin Active Tablets 800mg 90tab 1 tab by Ramses / s mouth three MD Chandu times a day Clonidine HCL Active Tablets 0.2mg 1 by mouth Unknown /0000 twice daily Mirena (52 MG) Active IUD 20mcg/24H Unknown / R Trazodone HCL Active Tablets 100mg 30tab Take 1 Ramses / s Tablet By MD Chandu Mouth Every Night Bedtime For Insomnia Quetiapine Active Tablets ER 200mg 30tab Take 1 Ramses Fumarate ER / 24HR s Tablet By MD Chandu Mouth Every Night Cyclobenzaprine 03/08 Hx Tablets 5mg 90tab take 5mg Ramses HCL s three times MD Chandu - a day as 04/27 needed. Atrovent HFA 01/12 Hx Aerosol 17mcg/Act 12.9u take 2 J44.9 nits puffs every MD Chandu - 6 hours as 03/08 needed Acetaminophen 11/24 Hx Tablets 325mg 60tab 2 tablets Tan s by mouth Pete Hughes, - every 6 M.D.,FACP 11/30 hours needed for pain/fever Ibuprofen 10/16 Hx Tablets 800mg 90tab take 1 s tablet by MD Chandu - mouth three 01/12 times a day /2017 as needed Valium 08/03 Hx Tablets 2mg 4tabs 4 by mouth R51 Willis prior to Glenn, - mri 10/16 Cyclobenzaprine 02/19 Hx Tablets 5mg 60tab 1 tablet by R07.89 Shahzad HCL /2014 s mouth three Caro, - times a day M.D. 03/11 as needed Medrol (Nestor) 06/10 Hx Tablets 4mg 1tabs per Darren Santiago josefina Barton, - directions M.D. 02/[address] 333mg take 2 Unknown Calcium /0000 tablets by - mouth three 03/11 times a day /2014 Gabapentin Hx Tablets 600mg 1 tab by Unknown /0000 mouth tid - 02/19 Ibuprofen 00/00 Hx Tablets 600mg 90tab 1 by mouth Shahzad /0000 s every 8 Caro, - hours as M.D. 10/16 needed Tramadol HCL Hx Tablets 50mg 30tab 1 tablets Shahzad /0000 s every 12 Caro, - hours as M.D. 03/11 Gabapentin Hx Tablets 600mg 1 po tid Unknown /0000 - 07/03 Diazepam Hx Tablets 5mg Take 1 Unknown /0000 Tablet By - Mouth 3 11/24 Times A Day /2016 Pain & Fever Hx Tablets 325mg Take 2 Unknown /0000 Tablets By - Mouth Every 11/24 6 Hours Needed For Pain For Up To 10 Cyclobenzaprine Hx Tablets 10mg 90tab take 1 Ramses HCL /0000 s tablet by MD Chandu - mouth 3 03/08 times a day as needed for spasm Immunizations CPT Code Status Date Vaccine Lot # [id number] Given 08/19/2017 Pneumonia Vaccine [id number] Vital Signs Date Vital Result Comment 04/27/2018 [...] Result H/L Range Note Laboratory test 04/19/2017 [facility] Surgical SEE RESULT 1 finding [address] [place] [address] [phone] Laboratory test 04/12/2017 [facility] Hemosure Neg finding Non-Medicare Laboratory test 02/06/2017 [facility] Ammonia 22 ?mol/L N 16- [address] [place] [address] [phone] TSH (Thyroid Stim Horm) 1.25 mcIU/mL N 0.34-5.60 Folic Acid (Folate) 9.54 ng/mL N >3.99 Vitamin B12 515 pg/mL N 180-914 2 Laboratory 02/06/2017 [facility] Hepatitis C Nonreactive N Nonreactive test finding [address] [place] [address] [phone] HIV 1/2 AB 02/06/2017 [facility] HIV 1 2 Nonreactive N Nonreactive [address] [place] [address] [phone] Urinalysis 10/09/2016 [facility] Urine Color Yellow N Profile [address] [place] [address] [phone] Urine Appearance Clear N Urine Specific Wayne 1.012 N 1.010-1.030 Urine pH 7.0 N 5-9 Urine Urobilinogen Negative N Negative Urine Ketones Negative N Negative Urine Protein Negative N Negative Urine Leukocytes Negative N Negative Urine Blood Negative N Negative Urine Nitrite Negative N Negative Urine Bilirubin Negative N Negative Urine Glucose Negative N Negative CBC Auto Diff 10/09/2016 [facility] White Blood 6.9 10^3/uL N 3.5-10.[address] [place] [address] [phone] Red Blood Count 3.59 10^6/uL Low 4.0-5.4 [...] % 0 N Comp Metabolic Panel 10/09/2016 [facility] Sodium 132 mmol/L Low 133-[address] [place] [address] [phone] Potassium 4.1 mmol/L N 3.5-5.0 Chloride 100 [...] 71.8 N >60 4 Laboratory test 10/09/2016 [facility] Acetaminophen < 15 g/mL N [address] [place] [address] [phone] Alcohol < 10 mg/dL N <10 Salicylate < 2.50 mg/dL N <30 TSH (Thyroid Stim Horm) 1.17 mcIU/mL N 0.34-5.60 Urine Drug 10/09/2016 [facility] Amphetamine Ur None Detected N None Detect SCR ED & [address] [place] [address] [phone] Barbiturates Urine Screen None Detected N None Detect Benzodiazepine Urine Screen Presumptive Posi <SEE NOTE> Abnormal None Detect 6 Urine Cannabinoids Screen Presumptive Posi <SEE NOTE> Abnormal None Detect 7 Urine Cocaine Screen None Detected N None Detect Urine Opiates Screen None Detected N None Detect Urine Phencyclidine Screen None Detected N None Detect 8 CBC Auto Diff 09/26/2016 [facility] White Blood 7.5 10^3/uL N 3.5-10.[address] [place] [address] [phone] Red Blood Count 4.21 10^6/uL N 4.0-5.4 [...] Cells % 0.1 N Laboratory test 09/26/2016 [facility] Troponin-I (TnI) 0.00 ng/ mL N <0.04 9 [address] [place] [address] [phone] Alcohol < 10 mg/dL N <10 Lipid Profile 09/26/2016 [facility] Triglycerides 92 mg/dL N 10 (Trig/Chol/HDL) [address] [place] [address] [phone] Cholesterol 149 mg/dL N 11 HDL Cholesterol 47.3 mg/dL N 12 LDL Cholesterol 83 mg/dL N 13 Comp Metabolic Panel 09/26/2016 [facility] Sodium 138 mmol/L N 133-145 [address] [place] [address] [phone] Potassium 3.1 mmol/L Low 3.5-5.0 Chloride 105 [...] 98.7 N >60 14 Laboratory test 09/26/2016 [facility] Partial 27.9 seconds N 26.0-36.[address] [place] [address] PTT [phone] Lactic Acid 0.7 mmol/L N 0.5-2.0 15 Inr/Protime 09/26/2016 [facility] Inr 0.95 N 0.89-1.[address] [place] [address] [phone] 1 SEE RESULT BELOW Name: YUMIKO FALCON : [address]: Elias Newberry MD Acct: [id number] Unit: [id number] AGE: 52 Location: [facility] Re04/19/17 SEX: F Status: REG REF SPEC: [id number] MIKE: 04/19/17-[address] [facility] [address]: Elias Newberry MD REQ: [id number] RECD: 04/19/17 STATUS: SOUT _ ORDERED: LEVEL 3 COMMENTS: [id number] FINAL DIAGNOSIS Skin, right eyelid, biopsy: -- [...] performed at Main Lab DEPARTMENT OF PATHOLOGY, [address] [place] [address] Isreal Oliva M.D. Director [facility] # [id number] 2 Normal Range 180 to 914 Indeterminate [...] 9 99th percentile=0.04 ng/mL Troponin results at [facility] and [facility] are not interchangeable. 10 Desirable <150 [...] 5 Kidney failure <15 (or dialysis) 15 [place] Severe Sepsis and Septic Shock Management Bundle Measure requires all lactic acids initially measuring >2.0 mmol/L be repeated. Procedures Date Code Description Status 04/19/2017 98050 Excise Malig Lesion .6-1CM Face/Ear/Eyelid/Nose/Lip Completed 08/11/2016 38775 Nerve Conduction 05-06 Studies Completed 08/11/2016 02600 Needle Electromyography Complete, Five Or More Muscles Completed Studied 08/11/2016 19615 EEG Recording Awake & Drowsy Completed 11/10/2015 99888 EKG, Interpretation Only Completed Encounters Type Date Location Provider Dx Diagnosis Office Visit 01/12/2018 [facility] Ramses Schofield MD J44.9 Chronic obstructive 10:30a 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 AT Ofelia Newberry. neoplasm skin/ [place] left eyelid, including canthus Office Visit 04/05/2017 1:40p 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 Internal Tan Freeman S06.5x0D Traum subdr hem w/o 4:00p Dov Hughes, haylie of Tarsha Quintana,FACP consciousness, subs F10.21 Alcohol dependence, in remission R26.89 Other abnormalities of gait and mobility Office Visit 10/16/2016 [facility] Internal Tan Freeman S06.5x0D Traum subdr hem [...] radiculopathy, cervical region Office Visit 06/05/2015 2:00p [facility] Internal Shahzad Caro, M54.2 Cervicalgia Medicine - [place] Dieter Quintana M25.511 Pain in right shoulder F10.10 Alcohol abuse, uncomplicated F32.8 Other depressive episodes R73.9 Hyperglycemia, unspecified F17.210 Nicotine dependence, cigarettes, uncomplicated Office Visit 03/13/2015 [facility] Internal Shahzad T50.901D Poisoning by unsp 2:20p Dov Caro M.D. drug/meds/biol [place] Rd subst, accidental, subs F10.10 Alcohol abuse, uncomplicated F32.8 Other depressive episodes R73.9 Hyperglycemia, unspecified G47.8 Other sleep disorders M54.2 Cervicalgia F17.210 Nicotine dependence, cigarettes, uncomplicated T40.4x2D Poisoning by oth synthetic narcotics, self-harm, subs T48.1x2D Poisoning by skeletal muscle relaxants, self-harm, subs Office Visit 02/19/2015 1:20p [facility] Internal Shahzad Caro, R07.89 Other chest Medicine - [place] M.D. pain Rd R07.89 Other chest pain S22.41xA Multiple fractures of ribs, right side, init for clos fx S22.41xS Multiple fractures of ribs, right side, sequela M62.838 Other muscle spasm S22.41xS Multiple fractures of ribs, right side, sequela S22.41xA Multiple fractures of ribs, right side, init for clos fx M62.838 Other muscle spasm Office Visit 04/06/2014 7:44p [facility] Ti Steve, 977.9 Poisoning By Assoc,pc D.O. Medicinal Hospitalists Substance Unspec 789.1 Hepatomegaly Office Visit 04/05/2014 7:43p [facility] Ti Steve, 780.97 Altered Mental Assoc,pc D.O. Status Hospitalists 977.9 Poisoning By Medicinal Substance Unspec 276.2 Acidosis 288.60 Leukocytosis, Unspecified Office Visit 09/23[facility]2012 [facility],juan Tinajero M.D. Hepatitis Acute Hospitalists 276.8 Hypopotassemia 276.51 Dehydration 276.2 Acidosis Office Visit 09/22/2012 2:53p [facility] Sonny 571.1 Alcoholic Assocjuan M.D. Hepatitis Acute Hospitalists 276.8 Hypopotassemia 276.51 Dehydration 276.2 Acidosis Office Visit 09/21/2012 2:52p [facility] Reyna Fields, 571.1 Alcoholic Assocjuan M.D. Hepatitis Acute Hospitalists 276.8 Hypopotassemia 276.51 Dehydration Office Visit 06/10/2009 2:45p Neurosurgery Darren Santiago 721.0 Spondylosis Services Of Jair Barton M.D. Cervical W/O Myelopathy 721.0 Spondylosis Cervical W/O Myelopathy 847.0 Sprains & Strains Neck 847.0 Sprains & Strains Neck 722.0 Intervertebral Disc Displacement Cervical W/O Myelopathy 722.0 Intervertebral Disc Displacement Cervical W/O Myelopathy Plan of Treatment Future Appointment(s):06/15/2018 10:40 am - Stephanie Sandhu, DO at [facility]04/27/2018 - Stephanie Sandhu DOR29.6 Repeated fallsNew Medication:Vitamin D-400 400 Unit - 1 tab by mouth every dayReferral:Visiting Nurse [facility] Health/ Nurse SpecJ44.9 Chronic obstructive pulmonary disease, unspecifiedNew Labs:Alpha 1 Antitrypsin A1a, Ordered: New Orders:PFTW/Spirometry Vol Pre/Post Bronchdilat Dlco Complete, Ordered: Minute Walk, Ordered: 04/27/18I20.9 Angina pectoris, nnpbgirwjeeK01.21 Alcohol dependence, in emhojgcqfY93.84 Mild cognitive impairment, so bvigjsR44.4 Chronic pain upfwostgP92.1 Alcoholic polyneuropathy
== END 2018-05-12 20:31 | disposition left against medical advice (07) ==
LOC: ED 17:54
DX: S99.922A Unspecified injury of left foot, initial encounter (principal); X58.XXXA Exposure to other specified factors, initial encounter; Y92.9 Unspecified place or not applicable; Z53.21 Procedure and treatment not carried out due to patient leaving prior to being seen by health care provider

== ENCOUNTER 2018-07-06 14:27 | Emergency (ER) | payer OTHER ==
[2018-07-06] MEDS ORDERED: NS 0.9% 1000 ML** 1,000 ML IV ONE ×2 (14:38→14:40)
[2018-07-06] MEDS ORDERED: DiMENhydriNATE IV* 50 MG/ML VIAL IV PUSH ONE (14:40)
[2018-07-06] MEDS ORDERED: Acetaminophen TAB* 325 MG PO ONE (14:40)
[2018-07-06] MEDS ORDERED: Metoclopramide IV* 5 MG/ML 2 ML VIAL IV ONE (14:40)
--- NOTE | 2018-07-06 14:48 | ED ---
Complex/Multi-Sys Presentation - HPI Summary HPI Summary: Pt is a 53 y/o female brought in by EMS who presents to the ED c/o CP. 2 days ago her home health nurse noticed that she had cold symptoms, including congestion, rhinorrhea, CP, cough with green sputum, and VASQUEZ. The CP is left- sided and is rated an 8/10 in severity. Pt describes the VASQUEZ as stabbing and left -sided. She was given 324 mg of ASA by EMS, but no NTG due to prior bad reactions to the medication. Hx of TBI 2 years ago, diagnosis of traumatic subdural hematoma. Since then she has minimal cognitive impairment and poor short term memory. PMHx HTN, alcoholism (in recovery), COPD, chronic pain syndrome, angina, anxiety, bipolar disorder, depressed, PTSD, cocaine abuse. Pt smokes 1 ppd. She notes that she slipped yesterday and drank alcohol, but stopped because its not a good idea. Pt had this seasons flu vaccine. - History Of Current Complaint Hx Obtained From: Patient, EMS Onset/Duration: Gradual Onset, Lasting Days - 2, Still Present Timing: Constant Severity Initially: Severe - 8/10 Location: Pain At: - left-sided head, left-sided chest Character: Sharp - stabbing Aggravating Factor(s): Nothing Alleviating Factor(s): Nothing Associated Signs And Symptoms: Positive: Headache, Cough, Chest Pain, Remote Trauma - TBI 2 years ago - Allergies/Home Medications Allergies/Adverse Reactions: Allergies Allergy/AdvReac Type Severity Reaction Status Date / Time Penicillins Allergy Anaphylatic Verified 07/06/18 15:48 Shock Home Medications: Home Medications Budesonide/Formote 160/4.5(NF) [Symbicort 160/4.5 (NF)] 2 puff INH BID 07/06/18 [History Confirmed 07/06/18] Cholecalciferol TAB* [Vitamin D TAB*] 400 unit PO DAILY 07/06/18 [History Confirmed 07/06/18] Disulfiram TAB* [Antabuse 250 MG TAB*] 250 mg PO QPM 07/06/18 [History Confirmed 07/06/18] Fluticasone NASAL SPRAY 50MCG* [Flonase NASAL SPRAY 50MCG*] 1 spray BOTH NARES BID 07/06/18 [History Confirmed 07/06/18] Levalbuterol HFA INHALER* [Xopenex Hfa Inhaler*] 2 puff INH Q4HR PRN 07/06/18 [ History Confirmed 07/06/18] Levonorgestrel (IUD) (NF) [Mirena (NF)] 20 mcg IU ONCE 07/06/18 [History Confirmed 07/06/18] QUEtiapine XR TAB* [Seroquel Xr 200 TAB*] 200 mg PO QPM 07/06/18 [History Confirmed 07/06/18] Thiamine TAB* [Vitamin B-1 TAB 100 MG*] 100 mg PO DAILY 07/06/18 [History Confirmed 07/06/18] Umeclidinium 62.5 MDI(NF) [Incruse ELLIPTA MDI (NF)] 1 puff INH DAILY 07/06/18 [ History Confirmed 07/06/18] amLODIPine TAB* [Norvasc 5 mg TAB*] 5 mg PO DAILY 07/06/18 [History Confirmed ] PMH/Surg Hx/FS Hx/Imm Hx Endocrine/Hematology History: Denies: Hx Diabetes Cardiovascular History: Reports: Hx Hypertension Denies: Hx Congestive Heart Failure, Hx Pacemaker/ICD Respiratory History: Reports: Hx Chronic Obstructive Pulmonary Disease (COPD) - says isnt bad and that she only uses a nebulizer very infrequently GI History: Reports: Hx Ulcer - says had gastric ulcer when a child, Other GI Disorders - cirrhosis with ascites History: Denies: Hx Renal Disease, Other Problems/Disorders Musculoskeletal History: Reports: Hx Back Problems, Hx Orthopedic Injury, Other Musculoskeletal History - shoulder problem. takes flexeril, plate in neck Denies: Hx Arthritis, Hx Bursitis, Hx Congenital Bone Abnormalities, Hx Fibromyalgia, Hx Gout Sensory History: Reports: Hx Contacts or Glasses Denies: Hx Cataracts, Hx Hearing Aid Opthamlomology History: Reports: Hx Contacts or Glasses Denies: Hx Cataracts Neurological History: Reports: Other Neuro Impairments/Disorders - Head injury w /o loss of consciousness. Epidural hematoma Denies: Hx Dementia Psychiatric History: Reports: Hx Anxiety, Hx Depression, Hx Community Mental Health Tx, Hx Bipolar Disorder, Hx Suicide Attempt, Hx Substance Abuse - ETOH, cocaine Denies: Hx Eating Disorder, Hx Panic Disorder, Hx of Violent Episodes Against Others - Cancer History Cancer Type, Location and Year: Cervical Hx Chemotherapy: No Hx Radiation Therapy: No Hx Palliative Cancer Treatment: No - Surgical History Surgery Procedure, Year, and Place: cervical neck fusion with titanium rods 2010. 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, Hx of Known/Suspected MRSA - "About 10 years ago." Denies: Hx Clostridium Difficile, Hx Human Immunodeficiency Virus (HIV), Traveled Outside the [place] in Last 30 Days - Family History Known Family History: Positive: Other - EtOH abuse disorder - Social History Alcohol Use: Daily Alcohol Amount: alcoholic, drank last night Hx Substance Use: No Substance Use Type: Reports: None Substance Use Comment - Amount & Last Used: currently denies drug use Hx Tobacco Use: Yes Smoking Status (MU): Heavy Every Day Tobacco Smoker Type: Cigarettes Amount Used/How Often: 1 pack per day Length of Time of Smoking/Using Tobacco: years Have You Smoked in the Last Year: Yes Review of Systems Positive: Nasal Discharge, Other - congestion Positive: Chest Pain - left-sided Positive: Cough - green sputum Neurological: Other - memory loss from TBI Positive: Headache - left-sided, stabbing All Other Systems Reviewed And Are Negative: Yes Physical Exam - Summary Physical Exam Summary: Appearance: Well appearing, no pain distress Skin: warm, dry, reflects adequate perfusion Head/face: normal Eyes: EOMI, INDER ENT: mucous membranes moist Neck: supple, non-tender Respiratory: coarse expiratory sounds in bilateral bases, no wheezes, good airation Cardiovascular: tachycardic but regular rhythm, pulses symmetrical Abdomen: non-tender, soft Bowel Sounds: present Musculoskeletal: normal, strength/ROM intact Neuro: normal, sensory motor intact, A&Ox3 GCS: 15 Triage Information Reviewed: Yes Vital Signs On Initial Exam: Initial Vitals Temp Pulse Resp BP Pulse Ox 100.1 F 122 22 127/88 97 07/06/18 14:33 07/06/18 14:33 07/06/18 14:33 07/06/18 14:33 07/06/18 14:33 Vital Signs Reviewed: Yes Diagnostics - Vital Signs Vital Signs Temp Pulse Resp BP Pulse Ox 07/06/18 14:37 22 07/06/18 14:34 17 07/06/18 14:33 100.1 F 122 14 127/88 97 - Laboratory Result Diagrams: 07/06/18 15:14 02/20/19 15:14 Lab Statement: Any lab studies that have been ordered have been reviewed, and results considered in the medical decision making process. - Radiology CXR Radiology Interpretation Completed By: Radiologist Summary of Radiographic Findings: COPD WITH ATELECTASIS VERSUS EARLY CONSOLIDATION OF THE LEFT LUNG BASE. ED physician reviewed radiology report. - CT Brain CT CT Interpretation Completed By: Radiologist Summary of CT Findings: NO ACUTE INTRACRANIAL PATHOLOGY. ED physician reviewed radiology report. Re-Evaluation - Re-Evaluation First Eval Re-Evaluation Time: 16:01 Change: Improved Comment: Pt feels much better. Complex Multi-Symp Course/Dx Course Of Treatment: Nurse's notes reviewed. Patient with URI/pneumonia symptoms and also history of COPD with some dyspnea. She was much improved with breathing treatments, steroids. Antibiotics were started. X-rays negative. Flu negative. CT the head is negative which was repeated due to headache and history of TBI/brain bleeding. Patient also has a history of alcohol dependence and has been on Antabuse however recently discontinued this in favor of drinking vodka. Her alcohol today was detectable above the legal limit. She is encouraged not to drink and her restart her Antabuse. - Diagnoses Differential Diagnoses/HQI/PQRI: Metabolic Abnormality, Sepsis, Other - Influenza, pneumonia, alcohol abuse Provider Diagnoses: COPD exacerbation, Dyspnea, Headache, Alcohol dependence Discharge - Sign-Out/Discharge Documenting (check all that apply): Patient Departure - Discharge Patient Received Moderate/Deep Sedation with Procedure: No - Discharge Plan Condition: Improved Disposition: HOME Prescriptions: Dexamethasone [Decadron] 8 mg PO DAILY #8 tablet DOXYcycline CAP(*) [DOXYcycline 100MG CAP(*)] 100 mg PO BID #14 cap Patient Education Materials: COPD (Chronic Obstructive Pulmonary Disease) (ED) Referrals: Ramses Schofield MD [Primary Care Provider] - Additional Instructions: Cut back on smoking. Do not drink alcohol. Use a humidifier while sleeping. Drink plenty of fluids. Call your doctor first thing in the morning to schedule prompt follow-up. Return with fever, difficulty breathing, worse, new symptoms or other concerns. Start antibiotics in the morning. Use your inhalers every 4 hours until well. - Billing Disposition and Condition Condition: IMPROVED Disposition: Home - Attestation Statements Document Initiated by Scribe: Yes Documenting Scribe: Kira Baker Provider For Whom Scribe is Documenting (Include Credential): Kevin Farrar MD Scribe Attestation: I, Kira Baker, scribed for Kevin Farrar MD on 07/06/18 at 1819. Scribe Documentation Reviewed: Yes Provider Attestation: The documentation as recorded by the scribeKira accurately reflects the service I personally performed and the decisions made by me, Kevin Farrar MD Status of Scribe Document: Viewed
[2018-07-06] MEDS ORDERED: Albuterol/Ipratropium NEB.SOL* Albuterol 2.5 MG/Ipratropium 0.5 MG 3 ML INH ONE (15:06)
[2018-07-06 15:22] LABS: Influenza A Molecular NEGATIVE (Negative); Influenza B Molecular NEGATIVE (Negative)
[2018-07-06 15:31] LABS: ABS Basophils 0 10^3/ul (0-0.2); ABS Eosinophils 0 10^3/ul (0-0.6); ABS Lymphocytes 0.8 10^3/ul (1.0-4.8); ABS Monocytes 0.8 10^3/ul (0-0.8); ABS Neutrophils 9.9 10^3/ul (1.5-7.7); ABS Nucleated RBC 0 10^3/ul; Eosinophil % 0.1 %; Hematocrit 38 % (35-47); Hemoglobin 13.3 g/dl (12.0-16.0); Lymphocyte % 6.8 %; Mean Corpuscular HGB Conc 35 g/dl (31-36); Mean Corpuscular Hemoglobin 34 pg (27-31); Mean Corpuscular Volume 97 fL (80-97); Mean Platelet Volume 6.3 fL (7.4-10.4); Nucleated Red Blood Cells % 0; Platelet Count 109 10^3/ul (150-450); Red Blood Count 3.93 10^6/ul (4.00-5.40); Red Cell Distribution Width 13 % (10.5-15); White Blood Count 11.5 10^3/ul (3.5-10.8)
[2018-07-06] MEDS ORDERED: methylPREDNISolone 125 MG* 2 ML VIAL IV ONE (15:40)
[2018-07-06 15:55] LABS: Albumin 4.3 g/dL (3.2-5.2); Albumin/Globulin Ratio 1.3 (1-3); BUN/Creatinine Ratio 7.7 (8-20); Calcium 9.6 mg/dL (8.6-10.3); EGFR African American 115.4 (>60); EGFR Non-African American 95.3 (>60); Globulin 3.3 g/dL (2-4); Potassium 3.5 mmol/L (3.5-5.0); Total Bilirubin 0.7 mg/dL (0.2-1.0); Total Protein 7.6 g/dL (6.4-8.9)
[2018-07-06] MEDS ORDERED: Levofloxacin 750 MG IVPREMIX(* 750 MG/150 ML BAG IVPB ONE (16:03)
--- OUTSIDE RECORDS SUMMARY | 2018-07-06 16:21 | XMS REPORT | Continuity of Care Document ---
:1965 External Reference #:[id number] Author Name Beverley Jones Care Team Providers Name Role Phone Ramses Schofield MD Primary Care Physician Unavailable Payers Type Date Identification Numbers Payment Provider Subscriber Effective: 2015 Policy Number: [id number] Medicaid Yumiko Falcon Expires: 2015 Group Name: 1 1 [address] PayID: [id number] [place] [address] Effective: 2015 Policy Number: [place] Medicaid Yumiko Falcon [id number] Group Name: [id number] [address] [address] PayID: [id number] [place] [address] Onset: 2015 Policy Number: [id number] [employer] Yumiko Falcon Group Number: [id number] [address] PayID: [id number] [place] [address] Advance Directives Description No Information Available Problems Date Description Provider Status Onset: 10/16/2016 Traumatic subdural hematoma Tan Hughes M.D.,FACP Active Note: LEFT occipital Onset: 07/03/2015 Cervical spondylosis without Richy Blackmon M.D. Active myelopathy Onset: 08/03/2016 Abnormal involuntary movement Willis Elizabeth MD Active Onset: 08/03/2016 Abnormal gait Wlilis Elizabeth MD Active Onset: 08/03/2016 Minimal cognitive [...] (more than 10 cigarettes/day) Smoking Status Reviewed: 06/15/18 Heavy tobacco smoker (more than 10 cigarettes/day) Exercise Type/Frequency Does not exercise Allergies, Adverse Reactions, Alerts Date Description Reaction Status Severity Comments 02/19/2015 Penicillin throat closes, fever Active Severe Medications Medication Date Status Form Strength Qnty SIG Indications Ordering Provider Amlodipine 06/15 Active Tablets 5mg 30tab 1 by mouth Stephanie Besylate s every day Senner, DO Levalbuterol 06/03 Active Aerosol 45mcg/Act 15uni inhale 2 Ramses Tartrate ts puffs by MD Chandu mouth every 4 hours as needed Symbicort 05/30 Active Aerosol 160-4.5mc 6gm 2 puff J44.9 g/Act twice a day Senner, DO Antabuse 05/25 Active Tablets 250mg 30tab take one s tab at Sen, night DO Sinus Rinse Kit 04/27 Active Packet 60uni Use twice a J32.9 Katja /2018 ts day. 1 Sudha, asmita REYES supply Flonase Allergy 04/27 Active Suspension 50mcg/Act 9.900 spray 1 J32.9 Katja Relief ml spray in Sudha, cordell REYES nostril twice daily Vitamin D-400 04/27 Active Tablets 400Unit 30tab 1 tab by R29.6 s mouth every Senner, day DO Cyclobenzaprine 04/27 Active Tablets 10mg 90tab Take 1 Stephanie HCL /2017 s Tablet By Senner, Mouth 2-3 DO Times A Day as Needed Incruse Ellipta 03/08 Active Aerosol 62.5mcg/I 30uni 1 J44.9 nh ts inhalation Senner, once a day DO Thiamine HCL 01/12 Active Tablets 100mg 60tab 1 by mouth F10.14 Stephanie s every day Senner, DO Ibuprofen 01/12 Active Tablets 600mg 90tab take 1 s tablet by Senner, mouth every DO 8 hours as needed for pain Gabapentin 10/16 Active Tablets 600mg 30tab 1 by mouth Ramses s daily as MD Chandu needed for anxiety Gabapentin Active Tablets 800mg 120ta 1 tab by Ramses / bs mouth four MD Chandu times a day Mirena (52 MG) Active IUD 20mcg/24H Unknown / R Trazodone HCL Active Tablets 100mg 30tab take 1 Stephanie s tablet by Senner, mouth every DO night bedtime for insomnia Quetiapine Active Tablets ER 200mg 30tab take 1 Stephanie Fumarate ER /0000 24HR s tablet by Chazner, mouth every DO night Advair Diskus 05/25 Hx Aerosol 250-50mcg 60uni 1 puff J44.9 /Dose ts inhaled Phoebe, - daily DO 05/30 Fluticasone 03/08 Hx Aerosol 232-14mcg 1unit take 2 J44.9 Stephanie Propionate/Salme /2018 /Act s inhalations aSrabiaol - twice a day DO 05/25 Cyclobenzaprine 03/08 Hx Tablets 5mg 90tab take 5mg Ramses HCL s three times MD Chandu - a day as 04/27 needed. Atrovent HFA 01/12 Hx Aerosol 17mcg/Act 12.9u take 2 J44.9 nits puffs every MD Chandu - 6 hours as 03/08 needed Ventolin HFA 01/12 Hx Aerosol 108(90Bas 18uni use every 4 J44.9 e) ts hours as Phoebe, - mcg/Act needed for DO 06/03 wheezing for shortness of breath Acetaminophen 11/24 Hx Tablets 325mg 60tab 2 tablets Tan s by mouth Pete Hughes, - every 6 M.D.,FACP 11/30 hours as needed for pain/fever Ibuprofen 10/16 Hx Tablets 800mg 90tab take 1 Ramses s tablet by MD Chandu - mouth three 01/12 times a day /2017 as needed Valium 08/03 Hx Tablets 2mg 4tabs 4 by mouth R51 prior to Glenn, - mri 10/16 Cyclobenzaprine 02/19 Hx Tablets 5mg 60tab 1 tablet by R07.89 Shahzad /2014 s mouth three Caro, - times a day M.D. 03/11 as needed /2014 Medrol (Nestor) 06/10 Hx Tablets 4mg 1tabs [...] 8 Caro, - hours as M.D. 10/16 Tramadol HCL Hx Tablets 50mg 30tab 1 tablets Shahzad /0000 s every 12 Caro, - hours as M.D. 03/11 needed Gabapentin Hx Tablets 600mg 1 po tid Unknown /0000 - 07/03 Antabuse Hx Tablets 500mg 30tab by mouth Stephanie /0000 s every Senner, - evening for DO 05/25 alcohol use /2018 disorder Diazepam Hx Tablets 5mg Take 1 Unknown /0000 Tablet By - Mouth 3 11/24 Times A Day /2016 Pain & Fever Hx Tablets 325mg Take 2 Unknown /0000 Tablets By - Mouth Every 11/24 6 Hours Needed For Pain For Up To 10 Clonidine HCL Hx Tablets 0.2mg 1 by mouth Unknown /0000 twice daily - 06/15 Cyclobenzaprine Hx Tablets 10mg 90tab take 1 Ramses HCL /0000 s tablet by MD Chandu - mouth 3 03/08 times a day as needed for spasm Immunizations CPT Code Status Date Vaccine Lot # [id number] Given 06/15/2018 Influenza Virus Vaccine, Quadrivalent, Split, [id number] Preservative Free [id number] Given 08/19/2017 Pneumonia Vaccine [id number] Vital Signs Date Vital Result Comment 06/15/2018 10:30am Weight 167.00 lb Heart Rate 92 /min BP Systolic 148 mmHg BP Diastolic 96 mmHg Respiratory Rate 18 /min Body Temperature 98.3 F Pain Level 8 head, rib O2 % BldC Oximetry 98 % 04/27/2018 12:10pm Weight 166.00 lb Heart Rate [...] Date Facility Test Result H/L Range Note Xray 05/25/2018 [facility] CT Brain Wo <pending> [address] [place] [address] [phone] Laboratory test 04/19/2017 [facility] Surgical SEE RESULT [address] [place] [address] [phone] Laboratory test 04/12/2017 [employer] In [facility] Hemosure Neg finding Non-Medicare Laboratory test 02/06/2017 [facility] Ammonia 22 ?mol/L N 16- [address] [place] [address] [phone] TSH (Thyroid Stim Horm) 1.25 mcIU/mL N 0.34-5.60 Folic Acid (Folate) 9.54 ng/mL N >3.99 Vitamin B12 515 pg/mL N 180-914 2 Laboratory 02/06/2017 [facility] Hepatitis C Nonreactive N Nonreactive test finding [address] [place] [address] [phone] HIV 1/2 AB 02/06/2017 [facility] HIV 1 2 Nonreactive N Nonreactive [address] [place] [address] [phone] CBC Auto Diff 10/09/2016 [facility] White Blood 6.9 10^3/uL N 3.5-10.[address] [place] [address] [phone] Red Blood Count 3.59 10^6/uL Low 4.0-5.4 [...] % 0 N Comp Metabolic Panel 10/09/2016 [facility] Sodium 132 mmol/L Low 133-[address] [place] [address] [phone] Potassium 4.1 mmol/L N 3.5-5.0 Chloride 100 [...] N >60 Egfr 71.8 N >60 4 Urine Drug 10/09/2016 [facility] Amphetamine Ur None Detected N None Detect SCR ED & [address] [place] [address] [phone] Barbiturates Urine Screen None Detected N None Detect Benzodiazepine Urine Screen Presumptive Posi <SEE NOTE> Abnormal None Detect 5 Urine Cannabinoids Screen Presumptive Posi <SEE NOTE> Abnormal None Detect 6 Urine Cocaine Screen None Detected N None Detect Urine Opiates Screen None Detected N None Detect Urine Phencyclidine Screen None Detected N None Detect 7 Urinalysis Profile 10/09/2016 [facility] Urine Color Yellow N [address] [place] [address] [phone] Urine Appearance Clear N Urine Specific [place] 1.012 N 1.010-1.030 Urine pH 7.0 N 5-9 Urine Urobilinogen Negative N Negative Urine Ketones Negative N Negative Urine Protein Negative N Negative Urine Leukocytes Negative N Negative Urine Blood Negative N Negative Urine Nitrite Negative N Negative Urine Bilirubin Negative N Negative Urine Glucose Negative N Negative Laboratory test 10/09/2016 [facility] Acetaminophen < 15 g/mL N 8 finding [address] [place] [address] [phone] Alcohol < 10 mg/dL N <10 Salicylate < 2.50 mg/dL N <30 TSH (Thyroid Stim Horm) 1.17 mcIU/mL N 0.34-5.60 Laboratory test 09/26/2016 [facility] Troponin-I (TnI) 0.00 ng/ mL N <0.04 9 finding [address] [place] [address] [phone] Alcohol < 10 mg/dL N <10 Lipid Profile 09/26/2016 [facility] Triglycerides 92 mg/dL N 10 (Trig/Chol/HDL) [address] [place] [address] [phone] Cholesterol 149 mg/dL N 11 HDL Cholesterol 47.3 mg/dL N 12 LDL Cholesterol 83 mg/dL N 13 Comp Metabolic Panel 09/26/2016 [facility] Sodium 138 mmol/L N 133-145 [address] [place] [address] [phone] Potassium 3.1 mmol/L Low 3.5-5.0 Chloride 105 [...] 98.7 N >60 14 Laboratory test 09/26/2016 [facility] Partial 27.9 seconds N 26.0-36.[address] [place] [address] PTT [phone] Lactic Acid 0.7 mmol/L N 0.5-2.0 15 Inr/Protime 09/26/2016 [facility] Inr 0.95 N 0.89-1.[address] [place] [address] [phone] CBC Auto Diff 09/26/2016 [facility] White Blood 7.5 10^3/uL N 3.5-10.[address] [place] [address] [phone] Red Blood Count 4.21 10^6/uL N 4.0-5.4 [...] Nucleated Red Blood Cells % 0.1 N 1 SEE RESULT BELOW Name: YUMIKO FALCON Andrea : [address]: Elias Newberry MD Acct: [id number] Unit: [id number] AGE: 52 Location: [facility] Re04/19/17 SEX: F Status: REG REF SPEC: [id number] MIKE: 04/19/17-[address]: Elias Newberry MD REQ: [id number] RECD: 04/19/17 STATUS: SOUT _ ORDERED: LEVEL 3 COMMENTS: [id number] FINAL DIAGNOSIS Skin, right eyelid, biopsy: -- [...] performed at Main Lab DEPARTMENT OF PATHOLOGY, [address] [place] [address] Isreal Oliva M.D. Director [facility] # [id number] 2 Normal Range 180 to 914 Indeterminate [...] 5 Kidney failure <15 (or dialysis) 5 Presumptive Positive Presumptive positive results are unconfirmed. 6 Presumptive Positive Presumptive positive results are unconfirmed. 7 The urine specimen was tested at the listed cutoffs: Drug class test level (ng/mL) Amphetamines 500 Barbiturates 200 Benzodiazepine metabolites 200 Cocaine metabolites 150 Cannabinoids 50 Opiates 300 Pcp 25 Specimen was received without chain of custody. Results should be used for medical purposes only. 8 Therapeutic concentration: <50 ug/mL Toxic concentration: >120 ug/mL 9 99th percentile=0.04 ng/mL Troponin results at [facility] and [facility] are not interchangeable. 10 Desirable <150 [...] 5 Kidney failure <15 (or dialysis) 15 UTS Severe Sepsis and Septic Shock Management Bundle Measure requires all lactic acids initially measuring >2.0 mmol/L be repeated. Procedures Date Code Description Status 04/19/2017 88414 [facility]cise Malig Lesion .6-1CM Face/Ear/Eyelid/Nose/Lip Completed 08/11/2016 69350 Nerve Conduction 05-06 Studies Completed 08/11/2016 33260 Needle Electromyography Complete, Five Or More Muscles Completed Studied 08/11/2016 98877 EEG Recording Awake & Drowsy Completed 11/10/2015 03259 EKG, Interpretation Only Completed Encounters Type Date Location Provider Dx Diagnosis Office Visit 04/27/2018 [facility] Stephanie Sandhu, R29.6 Repeated falls 11:40a [facility] DO J44.9 Chronic obstructive pulmonary disease, unspecified I20.9 Angina pectoris, unspecified F10.21 Alcohol dependence, in remission G31.84 Mild cognitive impairment, so stated G89.4 Chronic pain syndrome 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 Office Visit 04/27/2018 11:00a Pulmonology And Katja J44.9 [facility] MD Sudha obstructive [employer] pulmonary disease, unspecified F17.210 Nicotine dependence, cigarettes, uncomplicated J98.4 Other disorders of lung J32.9 Chronic sinusitis, unspecified R06.83 Snoring Office Visit 03/08/2018 11:30a [facility] Ramses Schofield J44.9 Chronic [facility] obstructive pulmonary disease, unspecified I20.9 Angina pectoris, unspecified R06.02 Shortness of breath F41.9 Anxiety disorder, unspecified G47.00 Insomnia, unspecified R51 Headache S06.5x0S Traum subdr hem w/o loss of consciousness, sequela 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 Office Visit 01/12/2018 10:30a [facility] Ramses Schofield J44.9 Chronic [facility] obstructive pulmonary disease, unspecified I20.9 Angina pectoris, unspecified F41.9 Anxiety disorder, unspecified R06.02 Shortness of breath F10.14 Alcohol abuse with alcohol-induced mood disorder G47.00 Insomnia, unspecified M54.2 Cervicalgia F17.210 Nicotine dependence, cigarettes, uncomplicated Z12.11 Encounter for screening for malignant neoplasm of colon 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, unspecified Office Visit 11/24/2016 [facility] Internal Tan Freeman S06.5x0D Traum subdr hem w/o 4:00p Dov Hughes, loss of [place]ruff Mariano,FACP consciousness, subs F10.21 Alcohol dependence, in remission R26.89 Other abnormalities of gait and mobility Office Visit 10/16/2016 [facility] Internal Tan Freeman S06.5x0D Traum subdr hem [...] radiculopathy, cervical region Office Visit 06/05/2015 2:00p [facility] Internal Shahzad Caro, M54.2 Cervicalgia Medicine - [place] Dieter Quintana M25.511 Pain in right shoulder F10.10 Alcohol abuse, uncomplicated F32.8 Other depressive episodes R73.9 Hyperglycemia, unspecified F17.210 Nicotine dependence, cigarettes, uncomplicated Office Visit 03/13/2015 [facility] Internal Shahzad T50.901D Poisoning by unsp 2:20p Dov Caro M.D. drug/meds/biol [address] subst, accidental, subs F10.10 Alcohol abuse, uncomplicated F32.8 Other depressive episodes R73.9 Hyperglycemia, unspecified G47.8 Other sleep disorders M54.2 Cervicalgia F17.210 Nicotine dependence, cigarettes, uncomplicated T40.4x2D Poisoning by oth synthetic narcotics, self-harm, subs T48.1x2D Poisoning by skeletal muscle relaxants, self-harm, subs Office Visit 02/19/2015 1:20p [facility] Internal Shahzad Gordo, R07.89 Other chest Medicine - Erickosn Quintana pain Rd R07.89 Other chest pain S22.41xA Multiple fractures of ribs, right side, init for clos fx S22.41xS Multiple fractures of ribs, right side, sequela M62.838 Other muscle spasm S22.41xS Multiple fractures of ribs, right side, sequela S22.41xA Multiple fractures of ribs, right side, init for clos fx M62.838 Other muscle spasm Office Visit 04/06/2014 7:44p [facility] Ti Steve, 977.9 Poisoning By Assoc,pc D.O. Medicinal Hospitalists Substance Unspec 789.1 Hepatomegaly Office Visit 04/05/2014 7:43p [facility] Ti Steve, 780.97 Altered Mental Assoc,pc D.O. Status Hospitalists 977.9 Poisoning By Medicinal Substance Unspec 276.2 Acidosis 288.60 Leukocytosis, Unspecified Office Visit 09/23/2012 2:53p [facility] Sonny 571.1 Alcoholic Assocjuan M.D. Hepatitis Acute Hospitalists 276.8 Hypopotassemia 276.51 Dehydration 276.2 Acidosis Office Visit 09/22/2012 2:53p [facility] Sonny 571.1 Alcoholic Assocjuan M.D. Hepatitis Acute Hospitalists 276.8 Hypopotassemia 276.51 Dehydration 276.2 Acidosis Office Visit 09/21/2012 2:52p [facility] Reyna Fields, 571.1 Alcoholic Assocjuan M.D. Hepatitis Acute Hospitalists 276.8 Hypopotassemia 276.51 Dehydration Office Visit 06/10/2009 2:45p Neurosurgery Darren Santiago 721.0 Spondylosis Services Of Jair Barton M.D. Cervical W/O Myelopathy 721.0 Spondylosis Cervical W/O Myelopathy 847.0 Sprains & Strains Neck 847.0 Sprains & Strains Neck 722.0 Intervertebral Disc Displacement Cervical W/O Myelopathy 722.0 Intervertebral Disc Displacement Cervical W/O Myelopathy Plan of Treatment 06/15/2018 - Stephanie Sandhu, DOF10.21 Alcohol dependence, in remissionRecommendations:Good job.I10 Essential (primary) hypertensionRecommendations:I am starting a new blood pressure medicine ( amlodipine). STOP taking the clonidine. Have your nurse call me with your blood pressure next week please!G89.4 Chronic pain cemrmiqjA14.210 Nicotine dependence, cigarettes, uncomplicatedRecommendations:keep up the good work! quitting is the best thing you can do for yourself!
[2018-07-06 17:34] VITALS: BP 129/93
== END 2018-07-06 17:34 | disposition home or self-care (01) ==
LOC: ED 14:27
DX: J44.1 Chronic obstructive pulmonary disease with (acute) exacerbation (principal); R06.00 Dyspnea, unspecified; R51 Headache; F10.20 Alcohol dependence, uncomplicated; I10 Essential (primary) hypertension; Z87.820 Personal history of traumatic brain injury; Z88.0 Allergy status to penicillin; F17.210 Nicotine dependence, cigarettes, uncomplicated
CPT/HCPCS: 36415; 70450; 71046; 80053; 80320; 83605; 84484; 85025; 87040; 96361; 96365; 96375; 99283; A9270-GY; G0480; J1240; J2765; J2930